=== PATIENT | male | born 1950 | race Caucasian/White ===

== ENCOUNTER 2020-10-11 13:02 | Emergency (ER) | payer MEDICARE ==
[2020-10-11 13:07] VITALS: TEMP 98.1
[2020-10-11] MEDS ORDERED: KETOROLAC 15 MG/ML 1 ML VIAL IM STA (13:28)
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
--- NOTE | 2020-10-11 14:09 | XR ---
EXAMINATION TYPE: XR lumbar spine 2 or 3V DATE OF EXAM: 10/11/2020 COMPARISON: None HISTORY: Back pain TECHNIQUE: Lumbar spine is examined in 3 views FINDINGS: There are 5 lumbar-type vertebral bodies. The pedicles are intact. Diffuse disc space narro wing is present. Some mild spondylosis is present. Sagittal plane alignment appears normal. IMPRESSION: 1. Diffuse mild degenerative disc changes and spondylosis within the lumbar spine.
[2020-10-11] MEDS ORDERED: HYDROcodone/APAP 5-325MG 1 EACH TAB PO STA (14:41)
[2020-10-11] MEDS ORDERED: ACET/COD 300 MG/30 MG STARTER PACK 6 TAB BTL PO STA (14:41)
[2020-10-11 15:05] VITALS: BP 139/81; PULSE 74; RESP 20
== END 2020-10-11 15:05 | disposition home or self-care (01) ==
LOC: EC 13:02
DX: M51.36 Other intervertebral disc degeneration, lumbar region (principal); M47.896 Other spondylosis, lumbar region; F17.200 Nicotine dependence, unspecified, uncomplicated; Z88.7 Allergy status to serum and vaccine
CPT/HCPCS: 99284; 96372; 72100; J1885